=== PATIENT | male | born 1960 | race Caucasian/White ===

== ENCOUNTER 2021-05-28 16:03 | Inpatient (IN) | payer OTHER ==
[~2021-05-28] VITALS: Ht 182.9 cm; Wt 108.9 kg
[2021-05-28 16:09] VITALS: BP 138/81
[2021-05-28 16:22] LABS: ABSOLUTE BASOPHILS 0.1 thou/uL (0.0-0.2); ABSOLUTE EOSINOPHILS 0.1 thou/uL (0.0-0.7); ABSOLUTE LYMPHOCYTES 1.4 thou/uL (0.8-5.3); ABSOLUTE MONOCYTES 0.6 thou/uL (0.0-1.2); ABSOLUTE NEUTROPHILS 4.4 thou/uL (1.6-8.1); BASOPHILS 1.1 %; EOSINOPHILS 1.2 %; HEMATOCRIT 34.9 % (42.0-52.0); HEMOGLOBIN 11.7 gm/dL (14.0-18.0); LYMPHOCYTES 20.9 %; MCH 26.1 pg (26.0-34.0); MCHC 33.4 g/dL (28.0-37.0); MPV 6.7 fl. (7.2-11.1); NUCLEATED RBCS 0 /100WBC; PLATELET COUNT* 228 thou/uL (150-400); POLYS 67.8 %; RBC 4.47 mil/uL (4.50-6.00); RDW-CV 22.2 % (10.5-14.5); WBC 6.5 thou/uL (4.0-11.0)
[2021-05-28 16:39] LABS: CALCIUM 8.8 mg/dL (8.5-10.1); CREATININE 2.3 mg/dL (0.6-1.3); POTASSIUM 4.7 mmol/L (3.5-5.1)
[2021-05-28 16:50] LABS: ALBUMIN 3.1 g/dL (3.4-5.0); TOTAL BILIRUBIN 0.3 mg/dL (<0.1-1.0); TOTAL PROTEIN 7.2 g/dL (6.4-8.2)
[2021-05-28 16:57] LABS: PLATELET ESTIMATE ADEQUATE
[2021-05-28 16:58] LABS: ANISOCYTOSIS Occasional; HYPOCHROMASIA Occasional; MICROCYTES Occasional
[2021-05-28 18:17] LABS: URINE BILIRUBIN NEGATIVE (Negative); URINE BLOOD 1+ (Negative); URINE CLARITY CLEAR; URINE COLOR YELLOW; URINE GLUCOSE-RANDOM NEGATIVE (Negative); URINE KETONES NEGATIVE (Negative); URINE LEUKOCYTES-REFLEX NEGATIVE (Negative); URINE NITRITE-REFLEX NEGATIVE (Negative); URINE PROTEIN TRACE (Negative); URINE SPECIFIC GRAVITY 1.015 (1.005-1.030); URINE UROBILINOGEN 0.2 E.U./dl (0.2-1.0)
[2021-05-28 18:33] LABS: SQUAMOUS 0-3 Few /LPF (0-3)
[2021-05-28 18:34] LABS: CRYSTALS None Seen /LPF (None Seen); FINE GRANULAR CASTS 0-3 Few /LPF (None Seen); HYALINE CASTS 0-3 Few /LPF (None Seen); MUCUS None Seen strn/LPF (None Seen); URINE RBC 0-2 Rare /HPF (0-2); URINE WBC-REFLEX None Seen /HPF (0-5)
[2021-05-28] MEDS ORDERED: SLOW FE142 MG PO (18:43)
[2021-05-28] MEDS ORDERED: ACTOS 30 MG TAB30 M1 PO (18:43)
[2021-05-28] MEDS ORDERED: CARVEDILOL12.5 MG PO (18:43)
[2021-05-28] MEDS ORDERED: SPIRONOLACTONE25 MG PO (18:44)
[2021-05-28] MEDS ORDERED: LISINOPRIL20 MG PO (18:44)
[2021-05-28] MEDS ORDERED: FLAGYL500 M1 PO (18:44)
[2021-05-28] MEDS ORDERED: CEPHALEXIN500 MG PO (18:44)
[2021-05-28] MEDS ORDERED: TORSEMIDE20 MG PO (18:45)
[2021-05-28 20:49] VITALS: BP 146/96
[2021-05-28 22:00] VITALS: BP 168/96
[2021-05-28 23:51] VITALS: BP 125/75
[2021-05-29 04:27] VITALS: BP 122/76
[2021-05-29 08:00] VITALS: BP 138/73
[2021-05-29 08:39] LABS: CALCIUM 8.5 mg/dL (8.5-10.1); CREATININE 1.7 mg/dL (0.6-1.3); POTASSIUM 4.5 mmol/L (3.5-5.1)
--- NOTE | 2021-05-29 10:02 | EKG ---
[place] [address] ELECTROCARDIOGRAM REPORT Name: MARCIA SHORT Room: [address] ADM IN ..#: [id number] Admission: 05/28/21 Attend Phys: Savannah Fontaine, Discharge: Date of : 60 Date of Service: 05/28/21 1621 Report #: [id number] THIS REPORT FOR: //name// [facility] ED Test Date: 2021-05-28 Test Time: 16:21:19 Pat Name: MARCIA SHORT Department: Room: [facility] Gender: M Lobby Porter: [place] : 1960 Requested By: Camden Riley Order Number: [id number] MD: Robin Meza Measurements Intervals [place] Rate: 75 P: 51 WY: 301 QRS: -68 QRSD: 184 T: 35 QT: 446 QTc: 499 Interpretive Statements Sinus rhythm Prolonged [place] interval RBBB and LAFB Probable left ventricular hypertrophy Baseline wander in lead(s) III No previous ECG available for comparison Electronically Signed On 05-29-2021 10:02:37 CDT by Robin Meza [email or web address] <ELECTRONICALLY SIGNED> By: Robin Meza MD, FACC 05/29/21 1002 1621 1621 Robin Meza MD, FAC /EPI
[2021-05-29 12:00] VITALS: BP 127/83
--- NOTE | 2021-05-29 13:06 | NUR ---
Pt is A&o. Resides at home alone. Independent. Pt currently wearing a cam boot and using a knee scooter, normally does not use any DME. No hx of HH or SNF. Goal is home at dc, no needs anticipated. Anticipate dc in a few days.
--- NOTE | 2021-05-29 14:21 | NUR ---
WOUND NUSE: PATIENT SEEN TO ADDRESS DIABETIC FOOT ULCER ON THE LEFT GREAT TOE. MEASURES 1.5 X 1.2 X 0.5 CM. PRESENTS WITH PINK TO RED, MINIMALLY GRANULATED TISSUE IN THE WOUND BED. THERE IS SMALL AMOUNT OF SEROUSANGUINOUS DRAINAGE ON THE OLD DRESSING. THE PERIWOUND TISSUE APPEARS CALLOUSED WITH A SMALL FISSURE ALONG THE LATERAL ASPECT. PATIENT WEARING A CAM WALKER. REPORTS HE IS DIABETIC AND WAS TAKEN BY AMBULANCE FROM DR. KELLER'S OFFICE D/T SUSPECTED CARDIAC S/S. PATIENT REPORTS HE BEEN USING LACTIC ACID TOPICALLY ALONG WITH AYLIN AT HOME HE WAS PRESCRIBED BY DR. KELLER. PATIENT STATES HE DOES NOT KNOW THE FREQUENCY OF DRESSING CHANGES HE WAS TO PERFORM. PATIENT INSTRUCTED ON MEASURES TO PROMOTE HEALING AND WITH GOOD UNDERSTANDING ACHIEVED. PATIENT WITH NUMEROUS SMALL SCRATCHES WHICH HE ATTRIBUTES TO HIS CAT. THESE APPEAR STABLE AND ARE NEITHER REDDENED NOR WEEPING AND ARE PRESENT ON BOTH LOWER LEGS. REQUESTED AND RECEIVED ORDER FOR PODIATRY CONSULT WITH DR. KELLER FROM DR. LAUREL MD.
[2021-05-29 16:00] VITALS: BP 160/85
[2021-05-29 20:00] VITALS: BP 137/81
[2021-05-30] VITALS (8 sets, daily range): BP systolic 139–165; BP diastolic 79–91
[2021-05-30 04:10] LABS: HEMATOCRIT 32.4 % (42.0-52.0); HEMOGLOBIN 10.9 gm/dL (14.0-18.0); MCH 26.3 pg (26.0-34.0); MCHC 33.7 g/dL (28.0-37.0); MCV 78.2 fL (80.0-100.0); MPV 6.9 fl. (7.2-11.1); RBC 4.14 mil/uL (4.50-6.00); RDW-CV 22.3 % (10.5-14.5); WBC 5.9 thou/uL (4.0-11.0)
[2021-05-30 04:34] LABS: ALBUMIN 2.6 g/dL (3.4-5.0); CALCIUM 8.4 mg/dL (8.5-10.1); CREATININE 1.4 mg/dL (0.6-1.3); MAGNESIUM 2.1 mg/dL (1.8-2.4); POTASSIUM 4.1 mmol/L (3.5-5.1); TOTAL BILIRUBIN 0.3 mg/dL (<0.1-1.0); TOTAL PROTEIN 6.3 g/dL (6.4-8.2)
--- NOTE | 2021-05-30 15:29 | NUR ---
Anticipate dc tomorrow. No needs
--- NOTE | 2021-05-30 18:50 | NUR ---
RECEIVED REPORT. ASSUMED CARE OF PT AROUND 0730. AM ASSESSMENT AND VITALS COMPLETED CHARTED. MEDS PER EMAR. CDIFF PRECAUTIONS CANCELLED PER DR BARRAGAN. LABS IMPROVING. UPDATED BROTHER TODAY WHEN HE CALLED. DELIVERY CLERK IN PLACE. PT HOPING TO DC TOMORROW. FALL PRECAUTIONS IN PLACE. CALL LIGHT WITHIN REACH REACH. HOURLY ROUNDING PERFORMED.
[2021-05-31 02:24] VITALS: BP 137/84
[2021-05-31 04:18] LABS: HEMOGLOBIN 11.5 gm/dL (14.0-18.0); MCH 26.7 pg (26.0-34.0); MCHC 33.8 g/dL (28.0-37.0); MCV 78.9 fL (80.0-100.0); RBC 4.3 mil/uL (4.50-6.00); RDW-CV 22.3 % (10.5-14.5); WBC 5.6 thou/uL (4.0-11.0)
[2021-05-31 04:24] LABS: CALCIUM 8.8 mg/dL (8.5-10.1); CREATININE 1.1 mg/dL (0.6-1.3); MAGNESIUM 2.1 mg/dL (1.8-2.4)
[2021-05-31 05:27] VITALS: BP 135/88
--- NOTE | 2021-05-31 05:36 | NUR ---
PT IS ABLE TO COMMUNICATE HIS NEEDS TO STAFF EFFECTIVELY. HE HAS DENIED THE NEED FOR PAIN MEDICATION UP TO THIS TIME. CAM BOOT TO LT LEG MAINTAINED; TOLERATED WELL UP TO THIS TIME. POSSIBLE DISCHARGE TODAY.
[2021-05-31 08:00] VITALS: BP 137/89
[2021-05-31 12:00] VITALS: BP 155/92
--- NOTE | 2021-05-31 14:44 | NUR ---
DISCHARGE ORDERS RECEIVED. PATIENT CONTINUES TO DENY CHEST PAIN, DIZZINESS OR ANY DISCOMFORT TO NURSING. CONDITION STABLE AT THIS TIME. PORTRAIT STUDIO PHOTOGRAPHER AND SALINE LOCK DC'D. PATIENT AND FRIEND EDUCATED ON DISCHARGE INSTRUCTIONS VERBALIZED UNDERSTANDING - GIVEN WRITTEN DISCHARGE INSTRUCTIONS FOR REINFORCEMENT TEACHING. ALL PERSONAL ITEMS COLLECTED BY PATIENT FOR DISCHARGE. DC'D VIA W/C WITH ALL PERSONAL BELONGINGS.
[2021-05-31 14:48] VITALS: BP 155/92
== END 2021-05-31 15:20 | disposition home or self-care (01) | DRG 684 ==
LOC: M.ERS 16:03 → M.TBA-ER 17:09 → M.2W 17:09
PROVIDERS: Emergency Medicine Emergency Medical Services; ADMIT Internal Medicine; ATTEND Internal Medicine
DX: N17.0 Acute kidney failure with tubular necrosis (principal); S91.302A Unspecified open wound, left foot, initial encounter; E11.621 Type 2 diabetes mellitus with foot ulcer; K52.9 Noninfective gastroenteritis and colitis, unspecified; E86.0 Dehydration; I50.9 Heart failure, unspecified; Z20.822 Contact with and (suspected) exposure to COVID-19; X58.XXXA Exposure to other specified factors, initial encounter; Y93.89 Activity, other specified; Y92.89 Other specified places as the place of occurrence of the external cause; Y99.8 Other external cause status; Z88.0 Allergy status to penicillin; Z90.49 Acquired absence of other specified parts of digestive tract; Z88.1 Allergy status to other antibiotic agents; Z98.49 Cataract extraction status, unspecified eye; Z86.14 Personal history of Methicillin resistant Staphylococcus aureus infection